=== PATIENT | male | born 1965 | race African-American/Black ===

== ENCOUNTER → 2017-03-28 | Day surgery (SDC) | payer OTHER ==
[~2017-03-28] MED LIST: BREO ELLIPTA 21 EACH INH; FLOVENT DISKUS50 MCG INH; MONTELUKAST SOD10 MG PO; WAL-ZYR10 M1 PO
--- NOTE | ~2017-03-28 | OR ---
Unit #: [id number] #: [id number] Patient: KANDY CAIN [id number] [address] [place], [place] [address] [id number] O MR#: [id number] NAME: KANDY CAIN ROOM: Date of Procedure: 03/28/2017 Admission Date: 03/28/2017 Surgeon: Sharan Bond M.D. : 1965 Attending Physician: Sharan Bond M.D. OPERATIVE REPORT JOB NOTE: VERIFY CC: MS. DEFENDOR, ODD JOB LABORER PROCEDURES PERFORMED Colonoscopy with snare polypectomy and hemoclip application. INDICATIONS FOR PROCEDURE A 51-year-old gentleman with history of positive FIT test as well as blood in the stool, undergoing colonoscopy for evaluation. MEDICATIONS Monitored anesthesia. POSTOPERATIVE FINDINGS 1. Sigmoid colon 2 polyps, one was 1.5 cm on big stalk, which was snared in 1 piece, had a clear stalk and sent for histopathology. Stalk was then hemoclipped. 2. Polyp, 6 mm, sigmoid colon, snared and sent for histopathology. 3. Rest of the colon exam to cecum was normal. 4. Good prep. PLAN Follow up on pathology report. Repeat colonoscopy in 3 years. DESCRIPTION OF PROCEDURE The patient was explained of the procedure, risks, and benefits along with risks and benefits of anesthesia. He was brought to the endoscopy room. Propofol anesthesia was given. Rectal exam was done, which was normal. Colonoscope was lubricated, passed up the rectum, advanced under direct vision all the way to cecum. Cecum was identified by ileocecal valve and appendiceal orifice. I then started to pull the scope out carefully looking. Two polyps have been described above. I retroflexed in the rectum, small hemorrhoids seen. The scope was pulled out. He tolerated it well. Dictated by... Geovanna Aleman/elías TD: 03/29/2017 16:16 JOB #: [id number] Unit #: [id number] #: [id number] Patient: KANDY CAIN OPERATIVE REPORT Page 1 of 1 X Sharan Bond MD PROCEDURE OPERATIVE NOTE
== END | disposition home or self-care (01) ==
LOC: COPS 10:42
DX: D12.5 Benign neoplasm of sigmoid colon (principal); K63.5 Polyp of colon; K64.9 Unspecified hemorrhoids; J45.909 Unspecified asthma, uncomplicated; F17.210 Nicotine dependence, cigarettes, uncomplicated; Z79.899 Other long term (current) drug therapy; Z88.1 Allergy status to other antibiotic agents; Z91.013 Allergy to seafood; Z79.51 Long term (current) use of inhaled steroids
CPT/HCPCS: 88305; J2250; J3010